=== PATIENT | male | born 1945 | race Caucasian/White ===

== ENCOUNTER 2018-07-08 11:19 | Observation (INO) | payer MEDICARE, OTHER ==
[2018-07-08 12:35] LABS: Basophils # (A) 0.1 k/uL (0-0.2); Basophils % (A) 1 %; Eosinophils # (A) 0.4 k/uL (0-0.7); Eosinophils % (A) 7 %; HCT 45.7 % (39.0-53.0); HGB 14.1 gm/dL (13.0-17.5); Lymphocytes # (A) 1.5 k/uL (1.0-4.8); Lymphocytes % (A) 24 %; MCHC 30.9 g/dL (31.0-37.0); MCV 84.1 fL (80.0-100.0); Mean Platelet Volume 7.4; Monocytes # (A) 0.3 k/uL (0-1.0); Monocytes % (A) 5 %; Neutrophils # (A) 3.9 k/uL (1.3-7.7); Neutrophils % (A) 62 %; Platelet Count 200 k/uL (150-450); RBC 5.44 m/uL (4.30-5.90); WBC 6.4 k/uL (3.8-10.6)
[2018-07-08 12:49] LABS: Albumin 4.3 g/dL (3.5-5.0); Calcium 9.7 mg/dL (8.4-10.2); Total Bilirubin 0.4 mg/dL (0.2-1.3); Total Protein 7.3 g/dL (6.3-8.2)
[2018-07-08 12:53] LABS: Partial Thromboplastin Time 22.2 sec (22.0-30.0); Prothrombin Time 9.9 sec (9.0-12.0)
--- NOTE | 2018-07-08 13:34 | ED ---
Altered Mental Status HPI - General Chief Complaint: Altered Mental Status Stated Complaint: confusion Time Seen by Provider: 07/08/18 11:49 Source: patient Mode of arrival: ambulatory Limitations: no limitations - History of Present Illness Initial Comments: This is a 72-year-old male with past medical history of diabetes, hypertension and hyperlipidemia who presents today for chief complaint of confusion. Patient was sent over by his primary care nurse practitioner Osman Fragoso. Patient came into her office complaining of blurred vision and confusion stating he is unable to process the words that he wants to say x1 week, denied weakness but states that at times feels his balance is off. He said he tried to remember his password for his computer for 15 minutes last night, which is not like normal. He also states that for the past week he has been feeling more forgetful than usual. Patient denies any home stressors. He denies any recent fever, chills, dysuria, urgency, frequency. He was started on new medication hypertension and hyperlipidemia for which he thought was causing this at first. After expressing these complaints to his primary care physician today who sent over to emergency department to rule out CVA. Examination performed by his MEDICAL BILLING COORDINATOR revealed no focal deficits. Patient denies any recent fever, chills, shortness of breath, chest pain, back pain, abdominal pain, nausea or vomiting, numbness or tingling, dysuria or hematuria, constipation or diarrhea, headaches or any other complaints. - Related Data Home Medications Medication Instructions Recorded Confirmed Aspirin [Adult Low Dose Aspirin EC] 81 mg PO DAILY 07/08/18 07/08/18 Cholecalciferol (Vitamin D3) 2,000 unit PO DAILY 07/08/18 07/08/18 [Vitamin D3] Fluticasone Nasal [place] [Flonase 1 spray EA NOSTRIL DAILY PRN 07/08/18 07/08/18 Nasal [place]] Glucosamine Sulfate 500 mg PO DAILY 07/08/18 07/08/18 Lisinopril [Zestril] 10 mg PO DAILY 07/08/18 07/08/18 Lovastatin [Mevacor] 20 mg PO HS 07/08/18 07/08/18 Multivit-Min/FA/Lycopen/Lutein 1 tab PO DAILY 07/08/18 07/08/18 [Centrum Silver Tablet] [place]-3 Fatty Acids [[place]-3] 1,000 mg PO DAILY 07/08/18 07/08/18 metFORMIN HCL [Glucophage] 500 mg PO BID 07/08/18 07/08/18 Allergies Allergy/AdvReac Type Severity Reaction Status Date / Time No Known Allergies Allergy Verified 07/08/18 12:44 Review of Systems ROS Statement: Those systems with pertinent positive or pertinent negative responses have been documented in the HPI. ROS Other: All systems not noted in ROS Statement are negative. Past Medical History Past Medical History: Diabetes Mellitus, Hyperlipidemia, Hypertension History of Any Multi-Drug Resistant Organisms: None Reported Additional Past Surgical History / Comment(s): circumcision, prostate Past Psychological History: Anxiety, Depression Smoking Status: Former smoker Past Alcohol Use History: Occasional Past Drug Use History: None Reported General Exam - General Exam Comments Initial Comments: General: The patient is awake and alert, in no distress, and does not appear acutely ill. Eye: Pupils are equal, round and reactive to light, extra-ocular movements are intact. No nystagmus. There is normal conjunctiva bilaterally. No signs of icterus. VF intact to confrontation. Ears, nose, mouth and throat: There are moist mucous membranes and no oral lesions. Neck: The neck is supple, there is no tenderness or JVD. Cardiovascular: There is a regular rate and rhythm. No murmur, rub or gallop is appreciated. Respiratory: Lungs are clear to auscultation, respirations are non-labored, breath sounds are equal. No wheezes, stridor, rales, or rhonchi. Musculoskeletal: Normal ROM, no tenderness. Strength 5/5. Sensation intact. Pulses equal bilaterally 2+. Neurological: A&O x 3. CN II-XII intact, There are no obvious motor or sensory deficits. Coordination appears grossly intact. Speech is normal. Skin: Skin is warm and dry and no rashes or lesions are noted. Psychiatric: Cooperative, appropriate mood & affect, normal judgment. Neurological: AAOx3 memory intact to immediately, intermediate and boat puller recall. Able to follow simple verbal. High quality, labial (pa) and lingual (la ) speech. Low quality posterior pharynx/larynx (ga) voice sounds. Able to express general knowledge (days in a week). No hemineglect or inattention noted. Finger agnosia (-) and spatially oriented (identified L index finger touched R shoulder with L index finger). Light touch and temperature sensation present over the face, chest, abdomen, back, UE bilaterally, and LE bilaterally. Able to localize point during point localization b/l and extinction. No visible bulk atrophy, hypertrophy, fasciculations, or myoclonus of the UE or LE b/l. Full PROM in UE and LE b/l. Bilateral muscle strength 5/5 for the following muscles: deltoid, biceps, triceps, brachioradialis, wrist extensors/flexor, hip flexor, hip abductors/adductors, hamstrings, quadriceps, feet dorsiflexors/plantar flexors. Finger to nose, finger to the examiners finger, and heel to [place] coordinated and accurate b/l. Coordinated and even demonstration of hand flip, finger to thumb, and toe tap b/l. +2 brachioradialis , triceps, patellar, and Achilles DTR b/l. Gait is coordinated and even in stride with tandem, toe and heel walk. (-) Romberg. (-) pronator drift. Limitations: no limitations Course Vital Signs 07/08/18 07/08/18 07/08/18 11:35 12:30 13:30 Temperature 98 F Pulse Rate 63 68 69 Respiratory 18 16 18 Rate Blood Pressure 186/95 184/80 174/90 O2 Sat by Pulse 96 98 97 Oximetry 07/08/18 07/08/18 07/08/18 15:03 16:12 18:10 Temperature 98.7 F 98 F Pulse Rate 67 59 L 62 Respiratory 16 16 16 Rate Blood Pressure 194/99 159/73 159/70 O2 Sat by Pulse 97 96 97 Oximetry Medical Decision Making - Medical Decision Making 72 male with past medical history of hypertension, hyperlipidemia and diabetes who presents today for chief complaint of confusion. CT without contrast obtained revealing no acute intracranial hemorrhage or process. Patient denies any current symptoms upon physical examination. CBC, CMP, urinary analysis within normal limits. EKG sinus bradycardia with no evidence of ST elevation or T wave inversion. Troponins (-). Neurological examination shows no focal deficits. However given patient's symptoms, age, and PMH I was concerned for a TIA. Case is discussed in detail with Dr. Almendarez. Patient was admitted to Dr. Lawson for observation for possible TIA, Dr. Almendarez spoke to Dr. Lawson. At 15:03 pt BP elevated, pt had not taken home BP medications yet, he was given home dose of lisinopril 10mg. Repeat BP . Echo and carotid Dopplers obtained. Patient given oral aspirin. Pt reevaluated by myself denying any current symptoms. Pt sent to floor in stable condition. - Lab Data Result diagrams: 07/08/18 12:00 07/08/18 12:00 Lab Results 07/08/18 07/08/18 07/08/18 Range/Units 12:00 12:00 12:00 WBC 6.4 (3.8-10.6) k/uL RBC 5.44 (4.30-5.90) m/uL Hgb 14.1 (13.0-17.5) gm/dL Hct 45.7 (39.0-53.0) % MCV 84.1 (80.0-100.0) fL MCH 26.0 (25.0-35.0) pg MCHC 30.9 L (31.0-37.0) g/dL RDW 14.0 (11.5-15.5) % Plt Count 200 (150-450) k/uL Neutrophils % 62 % Lymphocytes % 24 % Monocytes % 5 % Eosinophils % 7 % Basophils % 1 % Neutrophils # 3.9 (1.3-7.7) k/uL Lymphocytes # 1.5 (1.0-4.8) k/uL Monocytes # 0.3 (0-1.0) k/uL Eosinophils # 0.4 (0-0.7) k/uL Basophils # 0.1 (0-0.2) k/uL PT 9.9 (9.0-12.0) sec INR 1.0 (<1.2) APTT 22.2 (22.0-30.0) sec Sodium 142 (137-145) mmol/L Potassium 5.0 (3.5-5.1) mmol/L Chloride 109 H (98-107) mmol/L Carbon Dioxide 22 (22-30) mmol/L Anion Gap 11 mmol/L BUN 17 (9-20) mg/dL Creatinine 1.10 (0.66-1.25) mg/dL Est GFR (CKD-EPI)AfAm 78 (>60 ml/min/1.73 sqM) Est GFR (CKD-EPI)NonAf 68 (>60 ml/min/1.73 sqM) Glucose 112 H (74-99) mg/dL Calcium 9.7 (8.4-10.2) mg/dL Total Bilirubin 0.4 (0.2-1.3) mg/dL AST 31 (17-59) U/L ALT 38 (21-72) U/L Alkaline Phosphatase 64 (38-126) U/L Troponin I (0.000-0.034) ng/mL Total Protein 7.3 (6.3-8.2) g/dL Albumin 4.3 (3.5-5.0) g/dL TSH (0.465-4.680) mIU/L Urine Color Urine Appearance (Clear) Urine pH (5.0-8.0) Ur Specific [place] (1.001-1.035) Urine Protein (Negative) Urine Glucose (UA) (Negative) Urine Ketones (Negative) Urine Blood (Negative) Urine Nitrite (Negative) Urine Bilirubin (Negative) Urine Urobilinogen (<2.0) mg/dL Ur Leukocyte Esterase (Negative) 07/08/18 07/08/18 07/08/18 Range/Units 12:00 12:00 14:37 WBC (3.8-10.6) k/uL RBC (4.30-5.90) m/uL Hgb (13.0-17.5) gm/dL Hct (39.0-53.0) % MCV (80.0-100.0) fL MCH (25.0-35.0) pg MCHC (31.0-37.0) g/dL RDW (11.5-15.5) % Plt Count (150-450) k/uL Neutrophils % % Lymphocytes % % Monocytes % % Eosinophils % % Basophils % % Neutrophils # (1.3-7.7) k/uL Lymphocytes # (1.0-4.8) k/uL Monocytes # (0-1.0) k/uL Eosinophils # (0-0.7) k/uL Basophils # (0-0.2) k/uL PT (9.0-12.0) sec INR (<1.2) APTT (22.0-30.0) sec Sodium (137-145) mmol/L Potassium (3.5-5.1) mmol/L Chloride (98-107) mmol/L Carbon Dioxide (22-30) mmol/L Anion Gap mmol/L BUN (9-20) mg/dL Creatinine (0.66-1.25) mg/dL Est GFR (CKD-EPI)AfAm (>60 ml/min/1.73 sqM) Est GFR (CKD-EPI)NonAf (>60 ml/min/1.73 sqM) Glucose (74-99) mg/dL Calcium (8.4-10.2) mg/dL Total Bilirubin (0.2-1.3) mg/dL AST (17-59) U/L ALT (21-72) U/L Alkaline Phosphatase (38-126) U/L Troponin I <0.012 (0.000-0.034) ng/mL Total Protein (6.3-8.2) g/dL Albumin (3.5-5.0) g/dL TSH 1.500 (0.465-4.680) mIU/L Urine Color Light Yellow Urine Appearance Clear (Clear) Urine pH 6.0 (5.0-8.0) Ur Specific [place] 1.005 (1.001-1.035) Urine Protein Negative (Negative) Urine Glucose (UA) Negative (Negative) Urine Ketones Negative (Negative) Urine Blood Negative (Negative) Urine Nitrite Negative (Negative) Urine Bilirubin Negative (Negative) Urine Urobilinogen <2.0 (<2.0) mg/dL Ur Leukocyte Esterase Negative (Negative) Disposition Clinical Impression: TIA (transient ischemic attack) Disposition: ADMITTED IP TO THIS [facility] Condition: Stable Is patient prescribed a controlled substance at d/c from ED?: No Time of Disposition: 20:25
--- NOTE | 2018-07-08 13:35 | CT ---
EXAMINATION TYPE: CT brain wo con DATE OF EXAM: 07/08/2018 HISTORY: confusion CT DLP: 972 mGycm. Automated Exposure Control for Dose Reduction was Utilized. TECHNIQUE: CT scan of the head is performed without contrast. COMPARISON: None. FINDINGS: There is no acute intracranial hemorrhage or midline shift identified. There is diffuse v entricular and sulcal prominence consistent with diffuse age-related cerebral atrophy. There is low- attenuation in the periventricular white matter consistent with chronic small vessel ischemic change. The visualized portion of globes are intact. There is mild to moderate mucosal thickening involving ethmoid sinuses bilaterally most prominent posteriorly where there is patchy opacification seen best axial image 2. Some vascular calcification distal internal carotid arteries is present bilaterally. IMPRESSION: No acute intracranial hemorrhage or midline shift. There is mild diffuse age-related ce rebral atrophy and chronic small vessel ischemic change noted. Possible acute on chronic ethmoid sin us disease. Correlate clinically.
[2018-07-08 14:47] LABS: Appearance,Urine Clear (Clear); Bilirubin,Urine Negative (Negative); Blood,Urine Negative (Negative); Color,Urine Light Yellow; Glucose,Urine (UA) Negative (Negative); Ketones,Urine Negative (Negative); Leukocyte Esterase,Urine Negative (Negative); Nitrite,Urine Negative (Negative); Protein,Urine Negative (Negative); Specific Gravity,Urine 1.005 (1.001-1.035); Urobilinogen,Urine <2.0 mg/dL (<2.0)
[2018-07-08] MEDS ORDERED: LISINOPRIL 10 MG TAB PO STA (15:00)
[2018-07-08 15:04] VITALS: RESP 16
[2018-07-08] MEDS ORDERED: ASPIRIN 325 MG TAB PO STA (15:08)
[2018-07-08] MEDS ORDERED: SODIUM CHLORIDE 0.9% 1,000 ML IV SCH (15:15)
--- NOTE | 2018-07-08 16:36 | P.HPIM ---
History of Present Illness 72-year-old pleasant gentleman came in with complains of brief episode of confusion where he is unable to determine the password. Patient denied any focal weakness for her lightheadedness patient was complaining of some blurry vision as well which Which resolved at this point of time. Patient denied any fever chills patient and her nausea vomiting. Patient denied any focal numbness or tingling. Patient is better now. Patient was recently started on lisinopril which was appropriate patient is hypertensive diabetic patient also started on statin which is also appropriate. Patient is admitted for TIA workup. Review of Systems REVIEW OF SYSTEMS: CONSTITUTIONAL: No fever, no malaise, no fatigue. HEENT: No recent visual problems or hearing problems. Denied any sore throat. CARDIOVASCULAR: No chest pain, orthopnea, PND, no palpitations, no syncope. PULMONARY: No shortness of breath, no cough, no hemoptysis. GASTROINTESTINAL: No diarrhea, no nausea, no vomiting, no abdominal pain. Normoactive bowel sounds. NEUROLOGICAL: No headaches, no weakness, no numbness. HEMATOLOGICAL: Denies any bleeding or petechiae. GENITOURINARY: Denies any burning micturition, frequency, or urgency. MUSCULOSKELETAL/RHEUMATOLOGICAL: Denies any joint pain, swelling, or any muscle pain. ENDOCRINE: Denies any polyuria or polydipsia. The rest of the 14-point review of systems is negative. Past Medical History Past Medical History: Diabetes Mellitus, Hyperlipidemia, Hypertension History of Any Multi-Drug Resistant Organisms: None Reported Additional Past Surgical History / Comment(s): circumcision, prostate Past Psychological History: Anxiety, Depression Smoking Status: Former smoker Past Alcohol Use History: Occasional Past Drug Use History: None Reported Medications and Allergies Home Medications Medication Instructions Recorded Confirmed Type Aspirin [Adult Low Dose Aspirin EC] 81 mg PO DAILY 07/08/18 07/08/18 History Cholecalciferol (Vitamin D3) 2,000 unit PO DAILY 07/08/18 07/08/18 History [Vitamin D3] Fluticasone Nasal [place] [Flonase 1 spray EA NOSTRIL DAILY PRN 07/08/18 07/08/18 History Nasal [place]] Glucosamine Sulfate 500 mg PO DAILY 07/08/18 07/08/18 History Lisinopril [Zestril] 10 mg PO DAILY 07/08/18 07/08/18 History Lovastatin [Mevacor] 20 mg PO HS 07/08/18 07/08/18 History Multivit-Min/FA/Lycopen/Lutein 1 tab PO DAILY 07/08/18 07/08/18 History [Centrum Silver Tablet] [place]-3 Fatty Acids [[place]-3] 1,000 mg PO DAILY 07/08/18 07/08/18 History metFORMIN HCL [Glucophage] 500 mg PO BID 07/08/18 07/08/18 History Allergies Allergy/AdvReac Type Severity Reaction Status Date / Time No Known Allergies Allergy Verified 07/08/18 12:44 Physical Exam Vitals: Vital Signs Temp Pulse Resp BP Pulse Ox 07/08/18 16:12 59 L 16 159/73 96 07/08/18 15:03 98.7 F 67 16 194/99 97 07/08/18 13:30 69 18 174/90 97 07/08/18 12:30 68 16 184/80 98 07/08/18 11:35 98 F 63 18 186/95 96 Intake and Output 07/08/18 07/08/18 07/08/18 06:59 14:59 22:59 Other: Weight 88.768 kg PHYSICAL EXAMINATION: GENERAL: The patient is alert and oriented x3, not in any acute distress. Well developed, well nourished. HEENT: Pupils are round and equally reacting to light. EOMI. No scleral icterus. No conjunctival pallor. Normocephalic, atraumatic. No pharyngeal erythema. No thyromegaly. CARDIOVASCULAR: S1 and S2 present. No murmurs, rubs, or gallops. PULMONARY: Chest is clear to auscultation, no wheezing or crackles. ABDOMEN: Soft, nontender, nondistended, normoactive bowel sounds. No palpable organomegaly. MUSCULOSKELETAL: No joint swelling or deformity. EXTREMITIES: No cyanosis, clubbing, or pedal edema. NEUROLOGICAL: Gross neurological examination did not reveal any focal deficits. SKIN: No rashes. Results CBC & Chem 7: 07/08/18 12:00 07/08/18 12:00 Labs: Abnormal Lab Results - Last 24 Hours (Table) 07/08/18 07/08/18 Range/Units 12:00 12:00 MCHC 30.9 L (31.0-37.0) g/dL Chloride 109 H (98-107) mmol/L Glucose 112 H (74-99) mg/dL Assessment and Plan Plan: -Transient episode of confusion: We'll rule out TIA patient probably has a an episode of transient global amnesia, patient doesn't have any fever chills doesn 't have any signs or symptoms of infection. Symptoms resolved. Echocardiac exam is being of 20 carotid Doppler is being obtained patient has a nodular thyroid because of which I'm obtaining TSH levels. -Hypertension -Hyperlipidemia -Type 2 diabetes mellitus For above-mentioned chronic medical problems patient will be resumed on home medications except for metformin, patient will be started on sliding scale insulin.
[2018-07-08] MEDS: INSULIN ASPART 100 UNIT/ML 1 ML 10 ML VIAL SQ SCH ×2 (18:41→21:09)
[2018-07-08 18:56] VITALS: BMI 31.6
[2018-07-08 20:58] LABS: Glucose,Whole Blood 103 mg/dL (75-99)
[2018-07-08] MEDS ORDERED: ATORVASTATIN 10 MG TAB PO SCH (21:00)
[2018-07-08] MEDS ORDERED: metFORMIN 500 MG TAB PO SCH (21:00)
--- NOTE | 2018-07-08 23:21 | US ---
EXAMINATION TYPE: US carotid duplex BILAT DATE OF EXAM: 07/08/2018 COMPARISON: NONE CLINICAL HISTORY: Stenosis. Mental status change, Diabetic EXAM MEASUREMENTS: RIGHT: Peak Systolic Velocity (PSV) cm/sec ----- Right CCA: 56.0 ----- Right ICA: 91.4 ----- Right ECA: 95.3 ICA/CCA ratio: 1.6 RIGHT: End Diastole cm/sec ----- Right CCA: 14.2 ----- Right ICA: 25.4 ----- Right ECA: 25.4 LEFT: Peak Systolic Velocity (PSV) cm/sec ----- Left CCA: 72.2 ----- Left ICA: 86.7 ----- Left ECA: 100.0 ICA/CCA ratio: 1.2 LEFT: End Diastole cm/sec ----- Left CCA: 18.0 ----- Left ICA: 22.0 ----- Left ECA: 14.0 VERTEBRALS (direction of flow): Right Vertebral: Antegrade Left Vertebral: Antegrade Rhythm: Normal IMPRESSION: 1. No flow limiting carotid stenosis. 2. Mild to moderate, irregular wall changes are seen at bilateral carotid bifurcation, but PSV is wn l bilaterally. 3. Incidental finding of enlarged and heterogeneous thyroid gland with nodule noted in each gland. D edicated thyroid ultrasound recommended in 3 months.
[2018-07-09 06:13] LABS: Glucose,Whole Blood 113 mg/dL (75-99)
[2018-07-09] MEDS: INSULIN ASPART 100 UNIT/ML 1 ML 10 ML VIAL SQ SCH ×2 (06:14→12:44)
[2018-07-09 06:36] LABS: Calcium 9.6 mg/dL (8.4-10.2); Potassium 4.4 mmol/L (3.5-5.1)
[2018-07-09 08:29] VITALS: TEMP 97.7
[2018-07-09] MEDS ORDERED: LISINOPRIL 10 MG TAB PO SCH (09:00)
[2018-07-09] MEDS ORDERED: ASPIRIN 325 MG TAB PO SCH (09:00)
[2018-07-09] MEDS ORDERED: NON-FORMULARY DRUG (Omega-3 Fatty Acids [Omega-3] 1,000 MG) PO SCH (09:00)
--- NOTE | 2018-07-09 11:48 | ECHOF ---
Referral Reason:Thrombus MEASUREMENTS -------- HEIGHT: 167.6 cm WEIGHT: 86.2 kg BP: IVSd: 1.2 cm (0.6 - 1.1) LVIDd: 3.4 cm (3.9 - 5.3) LVPWd: 1.4 cm (0.6 - 1.1) IVSs: 1.5 cm LVIDs: 2.7 cm LVPWs: 1.5 cm Ao Diam: 3.5 cm (2.0 - 3.7) AV Cusp: 1.8 cm (1.5 - 2.6) LA Diam: 2.7 cm (2.7 - 3.8) MV EXCURSION: 9.371 mm (> 18.000) MV EF SLOPE: 49 mm/s (70 - 150) EPSS: 0.9 cm MV E Manuel: 0.75 m/s MV DecT: 256 ms MV A Manuel: 0.83 m/s MV E/A Ratio: 0.91 RAP: 5.00 mmHg RVSP: 14.63 mmHg FINDINGS -------- Sinus rhythm. This was a technically good study. The left ventricular size is normal. There is mild concentric left ventricular hypertrophy. Overa ll left ventricular systolic function is normal with, an EF between 55 - 60 %. The right ventricle is normal in size and function. The left atrium is normal in size. The right atrium is normal in size. The aortic valve is trileaflet and appears structurally normal. The mitral valve is normal. There is trace mitral regurgitation. Trace tricuspid regurgitation present. There is no evidence of pulmonary hypertension. The right ventricular systolic pressure, as measured by Doppler, is 14.63mmHg. There is no pulmonic regurgitation present. The aortic root size is normal. Normal inferior vena cava with normal inspiratory collapse consistent with estimated right atrial pre ssure of 5 mmHg. There is no pericardial effusion. CONCLUSIONS -------- 1. Sinus rhythm. 2. This was a technically good study. 3. The left ventricular size is normal. 4. There is mild concentric left ventricular hypertrophy. 5. Overall left ventricular systolic function is normal with, an EF between 55 - 60 %. 6. The left atrium is normal in size. 7. The aortic valve is trileaflet and appears structurally normal. 8. There is trace mitral regurgitation. 9. Trace tricuspid regurgitation present. 10. There is no evidence of pulmonary hypertension. 11. There is no pulmonic regurgitation present. 12. The aortic root size is normal. 13. Normal inferior vena cava with normal inspiratory collapse consistent with estimated right atrial pressure of 5 mmHg. 14. There is no pericardial effusion. PROGRAM DIRECTOR CABLE TELEVISION: Wendi Hatch RDCS
--- NOTE | 2018-07-09 12:24 | P.DS ---
Providers Date of admission: 07/08/18 15:05 Attending physician: Kelly Lawson Consults: 07/08/18 15:51 Consult Physician Routine Consulting Provider: Brigitte Reid Consult Reason/Comments: R/O TIA Do you want consulting provider notified?: Yes Primary care physician: Stated None Hospital Course: 72-year-old pleasant gentleman came in with complains of brief episode of confusion where he is unable to determine the password. Patient denied any focal weakness for her lightheadedness patient was complaining of some blurry vision as well which Which resolved at this point of time. Patient denied any fever chills patient and her nausea vomiting. Patient denied any focal numbness or tingling. Patient is better now. Patient was recently started on lisinopril which was appropriate patient is hypertensive diabetic patient also started on statin which is also appropriate. Patient is admitted for TIA workup. 07/09/2018 Carotid Doppler echocardiogram did not show any significant abnormality patient appears to have some thyromegaly patient will need a dedicated thyroid ultrasound as an outpatient followed with possible FNA had a biopsy for needed. TSH is essentially within normal limits. Patient aspirin will be switched to Plavix. Patient will follow-up with neurology as an outpatient. Patient does not have any focal weakness patient probably has transient global amnesia will do for TIA. PHYSICAL EXAMINATION: GENERAL: The patient is alert and oriented x3, not in any acute distress. Well developed, well nourished. HEENT: Pupils are round and equally reacting to light. EOMI. No scleral icterus. No conjunctival pallor. Normocephalic, atraumatic. No pharyngeal erythema. No thyromegaly. CARDIOVASCULAR: S1 and S2 present. No murmurs, rubs, or gallops. PULMONARY: Chest is clear to auscultation, no wheezing or crackles. ABDOMEN: Soft, nontender, nondistended, normoactive bowel sounds. No palpable organomegaly. MUSCULOSKELETAL: No joint swelling or deformity. EXTREMITIES: No cyanosis, clubbing, or pedal edema. NEUROLOGICAL: Gross neurological examination did not reveal any focal deficits. SKIN: No rashes. Assessment and Plan Plan: -Transient episode of confusion: Probably secondary to transient global amnesia -Hypertension -Hyperlipidemia -Type 2 diabetes mellitus For above-mentioned chronic medical problems patient will be resumed on home medications except for metformin, patient will be started on sliding scale insulin. Patient Condition at Discharge: Stable Plan - Discharge Summary Discharge Rx Participant: No New Discharge Prescriptions: New Clopidogrel Bisulfate [Plavix] 75 mg PO DAILY #30 tab Discontinued Aspirin [Adult Low Dose Aspirin EC] 81 mg PO DAILY No Action metFORMIN HCL [Glucophage] 500 mg PO BID Cholecalciferol (Vitamin D3) [Vitamin D3] 2,000 unit PO DAILY Lovastatin [Mevacor] 20 mg PO HS Lisinopril [Zestril] 10 mg PO DAILY Glucosamine Sulfate 500 mg PO DAILY Multivit-Min/FA/Lycopen/Lutein [Centrum Silver Tablet] 1 tab PO DAILY Fluticasone Nasal [place] [Flonase Nasal [place]] 1 spray EA NOSTRIL DAILY PRN PRN Reason: Allergy Symptoms [place]-3 Fatty Acids [[place]-3] 1,000 mg PO DAILY Discharge Medication List Cholecalciferol (Vitamin D3) [Vitamin D3] 2,000 unit PO DAILY 07/08/18 [History] Fluticasone Nasal [place] [Flonase Nasal [place]] 1 spray EA NOSTRIL DAILY PRN 07/08 [History] Glucosamine Sulfate 500 mg PO DAILY 07/08/18 [History] Lisinopril [Zestril] 10 mg PO DAILY 07/08/18 [History] Lovastatin [Mevacor] 20 mg PO HS 07/08/18 [History] Multivit-Min/FA/Lycopen/Lutein [Centrum Silver Tablet] 1 tab PO DAILY 07/08/18 [ History] [place]-3 Fatty Acids [[place]-3] 1,000 mg PO DAILY 07/08/18 [History] metFORMIN HCL [Glucophage] 500 mg PO BID 07/08/18 [History] Clopidogrel Bisulfate [Plavix] 75 mg PO DAILY #30 tab 07/09/18 [Rx] Follow up Appointment(s)/Referral(s): Brigitte Reid MD [STAFF PHYSICIAN] - 1 Week (Neurologist- office will call you with follow up appointment.) None,Stated [Primary Care Provider] - 3 Days Patient Instructions/Handouts: Transient Ischemic Attack (DC), Heart Healthy Diet (DC), Hypertension (DC), Safe Use of Antiplatelet Medication (DC) Discharge Disposition: HOME SELF-CARE
[2018-07-09 12:41] VITALS: BP 140/73; PULSE 59
[2018-07-09 16:39] LABS: Glucose,Whole Blood 121 mg/dL (75-99)
--- NOTE | 2018-07-09 18:14 | P.CNNES ---
History of Present Illness Consult date: 07/09/18 Requesting physician: Kelly Lawson Reason for Consult: TIA Chief complaint: Vision Changes History of Present Illness: (Patient seen in patient at 1300 hrs) Neurology is consulting on a 72-year-old male with a past medical history of diabetes, hypertension, hyperlipidemia who presented to the ED with complaints of confusion. Patient was referred to the ED by primary care physician's nurse practitioner. Patient complained of blurred vision, confusion stating he was unable to process words that he wanted to say for approximately 1 week, denied weakness but states that at times his balance is off. He also reports increased difficulty with memory. Patient states he returned to baseline since being hospitalized. Patient imaging of his brain including carotid Doppler noted no flow-limiting stenosis. CT brain noted chronic small vessel ischemic changes with mild age-related atrophy. Patient is requesting discharge. On contact, patient was alert and oriented 3, no acute distress, resting in bed with no family or visitors in the room. Patient states he is asymptomatic and returned to baseline. Review of Systems systems not noted in HPI our negative Past Medical History Past Medical History: Diabetes Mellitus, Hyperlipidemia, Hypertension History of Any Multi-Drug Resistant Organisms: None Reported Additional Past Surgical History / Comment(s): circumcision, prostate Past Psychological History: Anxiety, Depression Smoking Status: Former smoker Past Alcohol Use History: Occasional Past Drug Use History: None Reported Medications and Allergies Home Medications Medication Instructions Recorded Confirmed Type Cholecalciferol (Vitamin D3) 2,000 unit PO DAILY 07/08/18 07/08/18 History [Vitamin D3] Fluticasone Nasal [place] [Flonase 1 spray EA NOSTRIL DAILY PRN 07/08/18 07/08/18 History Nasal Lawrence] Glucosamine Sulfate 500 mg PO DAILY 07/08/18 07/08/18 History Lisinopril [Zestril] 10 mg PO DAILY 07/08/18 07/08/18 History Lovastatin [Mevacor] 20 mg PO HS 07/08/18 07/08/18 History Multivit-Min/FA/Lycopen/Lutein 1 tab PO DAILY 07/08/18 07/08/18 History [Centrum Silver Tablet] Colton-3 Fatty Acids [Colton-3] 1,000 mg PO DAILY 07/08/18 07/08/18 History metFORMIN HCL [Glucophage] 500 mg PO BID 07/08/18 07/08/18 History Clopidogrel Bisulfate [Plavix] 75 mg PO DAILY #30 tab 07/09/18 Rx Allergies Allergy/AdvReac Type Severity Reaction Status Date / Time No Known Allergies Allergy Verified 07/08/18 12:44 Physical Examination - Vital Signs Vital Signs: Vital Signs Temp Pulse Pulse Resp BP BP Pulse Ox 07/09/18 12:00 59 L 16 140/73 96 07/09/18 08:00 97.7 F 54 L 16 147/83 95 07/09/18 04:00 68 16 145/68 97 07/09/18 00:00 72 16 135/72 97 07/08/18 20:00 98.5 F 58 L 16 169/85 95 07/08/18 18:10 98 F 62 16 159/70 97 Intake and Output 07/09/18 07/09/18 07/09/18 06:59 14:59 22:59 Intake Total 120 Output Total 600 Balance 120 -600 Intake: IV 120 Sodium Chloride 0.9% 1, 120 000 ml @ 20 mls/hr IV . Q24H [facility] Rx#:[id number] Output: Urine 600 Other: Voiding Method Toilet Weight 86.6 kg General appearance: Alert & oriented x3, no apparent distress. Head: Atraumatic, normocephalic, normal inspection Eyes: Well appearance, PERRLA, EOMI. Absent scleral icterus, conjunctival injection, nystagmus, periorbital swelling. Ear, nose and throat: Normal exam, mucous membranes moist Neck: Normal inspection, absent tenderness, lymphadenopathy. Respiratory: No increased work of breathing Cardiovascular: Regular rate, rhythm GI/abdominal: No guarding Extremities: Full range of motion, normal capillary refill, no tenderness, pedal edema joint swelling, calf tenderness. Neurological: cranial nerves II through XII intact no lateralizing weakness no seizure activity noted on physical exam no pronator drift and no nystagmus. Left lower extremity: 5/5 Right lower extremity: 5/5 Left upper extremity: 5/5 Right upper extremity:5 /5 Sensation: Left lower extremity: normal Right lower extremity: normal Left upper extremity: normal Right upper extremity:normal Psychological: Mood and Affect appropriate for setting Results Laveta triglycerides, low HDL - Laboratory Findings CBC and BMP: 07/08/18 12:00 07/09/18 05:59 Abnormal Lab Findings: Abnormal Labs 07/08/18 07/08/18 07/08/18 12:00 12:00 20:57 MCHC 30.9 L Chloride 109 H Glucose 112 H POC Glucose (mg/dL) 103 H Triglycerides HDL Cholesterol 07/09/18 07/09/18 07/09/18 05:59 06:00 11:55 MCHC Chloride Glucose 111 H POC Glucose (mg/dL) 113 H 121 H Triglycerides 155 H HDL Cholesterol 36 L Assessment and Plan (1) TIA (transient ischemic attack) Status: Acute Code(s): G45.9 - TRANSIENT CEREBRAL ISCHEMIC ATTACK, UNSPECIFIED SNOMED Code(s): 521321867 Plan: Patient does appear to experience TIA. Patient has returned to baseline with no residual symptoms. Patient is insistent on discharge. continue aspirin in the outpatient setting Consider possible Lipitor implementation in the outpatient setting EEG to be performed outpatient. Patient would not comply with recommendations to obtain EEG prior to discharge. STATUS: Patient will be cleared for discharge from a neurological standpoint. Patient to contact our office within 10 days for follow up. I have discussed the plan of care with the physician prior to implementation and he agrees with the plan as implemented.
== END 2018-07-09 14:08 | disposition home or self-care (01) ==
LOC: EC 11:19 → 6SEL 15:05
PROVIDERS: ADMIT Internal Medicine; ATTEND Internal Medicine
DX: R41.0 Disorientation, unspecified (principal); G45.4 Transient global amnesia; H53.8 Other visual disturbances; E78.5 Hyperlipidemia, unspecified; I10 Essential (primary) hypertension; E11.9 Type 2 diabetes mellitus without complications; E04.1 Nontoxic single thyroid nodule; Z87.891 Personal history of nicotine dependence; Z79.82 Long term (current) use of aspirin; Z79.51 Long term (current) use of inhaled steroids; Z79.899 Other long term (current) drug therapy; Z79.84 Long term (current) use of oral hypoglycemic drugs; R41.3 Other amnesia; Z79.02 Long term (current) use of antithrombotics/antiplatelets
CPT/HCPCS: 99285; 36415; 93005; 93306; 80061; 80053; 80048; 84443; 84484; 85025; 85610; 85730; 81003; 93880; 70450; G0378 ×2